=== PATIENT | male | born 1960 | race Caucasian/White ===

== ENCOUNTER 2016-07-07 10:10 | Emergency (ER) | payer OTHER, MEDICAID ==
[~2016-07-07] VITALS: Ht 165.1 cm; Wt 70.3 kg
[2016-07-07 10:22] VITALS: BP_SYST 133
[2016-07-07] MEDS ORDERED: IBUPROFEN 100 MG/5 ML UDC PO ONE (11:45)
[2016-07-07 12:04] VITALS: BP_SYST 124
== END 2016-07-07 12:04 | disposition home or self-care (01) ==
LOC: SED 10:10
DX: S42.001A Fracture of unspecified part of right clavicle, initial encounter for closed fracture (principal); F79 Unspecified intellectual disabilities; Z91.030 Bee allergy status; W19.XXXA Unspecified fall, initial encounter; Y93.89 Activity, other specified; Y92.89 Other specified places as the place of occurrence of the external cause; Y99.8 Other external cause status
CPT/HCPCS: 73030; 99284